=== PATIENT | male | born 1995 | race Caucasian/White ===

== ENCOUNTER 2023-02-01 08:50 | Emergency (ER) | payer MEDICAID ==
[~2023-02-01] VITALS: Ht 172.7 cm; Wt 66.2 kg
[2023-02-01 08:53] VITALS: BP_SYST 138; PULSE 85; RESP 18; TEMP 98.3; O2SAT 98
[2023-02-01 09:10] VITALS: BP_SYST 138; PULSE 85; RESP 18; TEMP 98.3; O2SAT 98
== END 2023-02-01 09:11 ==
LOC: SED 08:50
DX: S05.12XA Contusion of eyeball and orbital tissues, left eye, initial encounter (principal); H11.32 Conjunctival hemorrhage, left eye; Z79.899 Other long term (current) drug therapy; X58.XXXA Exposure to other specified factors, initial encounter; Y93.89 Activity, other specified; Y92.89 Other specified places as the place of occurrence of the external cause; Y99.8 Other external cause status
CPT/HCPCS: 99283